=== PATIENT | female | born 1975 | race Two or more races ===

== ENCOUNTER 2016-11-11 16:39 | Observation (INO) | payer OTHER ==
[2016-11-11] MEDS ORDERED: SODIUM CHLORIDE 1,000 ML IV STA (17:12)
[2016-11-11 17:31] VITALS: BMI 37.2
--- NOTE | 2016-11-11 17:42 | PDOC ---
History of Present Illness - General Chief Complaint: Bleeding from Anus Stated Complaint: Rectal Bleed Time Seen by Provider: 11/11/16 17:01 History Source: Patient Exam Limitations: No Limitations - History of Present Illness Initial Comments: 11/11/16 17:37 41 y/o female draining pus and blood from the rectum since yesterday. Patient states went to see Dr. Hidalgo for the above rerouted patient to the ER for concerning diagnosis of perirectal abscess. Patient states has had no fever but has had subjective chills. Patient denies history of immunosuppression including HIV and diabetes. Patient states has had similar symptoms approximately 2 years ago which resolved after having an I&D performed by Dr. Hidalgo. Timing/Duration: getting worse Severity: moderate Associated Symptoms: reports: fever/chills Past History - Travel Traveled outside of the country in the last 30 days: No Close contact w/someone who was outside of country & ill: No - Past Medical History Allergies/Adverse Reactions: Allergies Allergy/AdvReac Type Severity Reaction Status Date / Time latex Allergy Verified 11/11/16 17:31 lactose AdvReac Verified 11/11/16 17:32 Home Medications: Ambulatory Orders Cyclobenzaprine HCl [Flexeril -] 10 mg PO DAILY 11/11/16 Escitalopram Oxalate [Lexapro -] 10 mg PO DAILY 11/11/16 Gabapentin [Neurontin] 100 mg PO TID 11/11/16 Lamotrigine [Lamictal -] 25 mg PO DAILY 11/11/16 Meloxicam [Mobic] 10 mg PO DAILY 11/11/16 Amox-Tr/K Cl [Augmentin 875-125mg Tablet -] 1 tab PO BID@1000,2200 #14 tablet Ibuprofen [Motrin -] 600 mg PO TID PRN #90 tablet 11/12/16 - Psycho/Social/Smoking Cessation Hx Suicidal Ideation: No Smoking History: Current every day smoker Number of Cigarettes Smoked Daily: 6 Information on smoking cessation initiated: No Hx Alcohol Use: No Drug/Substance Use Hx: No Patient Lives Alone: No Lives with/in: spouse/SO Review of Systems - Review of Systems Able to Perform ROS?: Yes Constitutional: Yes: Chills ABD/GI: No: Symptoms Reported Musculoskeletal: No: Symptoms Reported Integumentary: Yes: Erythema, Lumps (rectal) Neurological: No: Symptoms reported Endocrine: No: Symptoms Reported Hematologic/Lymphatic: No: Symptoms Reported *Physical Exam - Vital Signs Last Vital Signs Temp Pulse Resp BP Pulse Ox 98.0 F 100 H 18 122/65 98 11/11/16 16:39 11/11/16 16:39 11/11/16 16:39 11/11/16 16:39 11/11/16 16:39 - Physical Exam General Appearance: Yes: Nourished, Appropriately Dressed. No: Apparent Distress Rectal Exam: positive: other (noted erythematous edematous rectum draining blood -tinged purulent fluid from anus. ) Integumentary: positive: Warm, Moist ED Treatment Course - LABORATORY CBC & Chemistry Diagram: 11/12/16 07:30 11/12/16 07:30 - RADIOLOGY Radiology Studies Ordered: Category Date Time Status ABDOMEN & PELVIS CT WITH CONTR [CT] Stat CT Scan 11/11/16 17:14 Ordered CHEST X-RAY PORTABLE* [RAD] Stat Radiology 11/11/16 17:12 Ordered Medical Decision Making - Medical Decision Making 11/11/16 17:28 Patient sent here from Dr. Hidalgo for evaluation of possible perirectal abscess. He is recommending medical evaluation including a CT. Patient has been ordered for septic workup including abdominal pelvic CT including perirectal contrast and IV contrast. 11/11/16 18:57 Laboratory Tests 11/11/16 11/11/16 11/11/16 17:25 17:30 17:30 WBC 11.1 H Hgb 12.2 Hct 37.7 MCV 74.5 L MCH 24.1 L INR 1.20 H Sodium Potassium Chloride Carbon Dioxide Anion Gap BUN Creatinine Random Glucose Lactic Acid 1.7 Creatine Kinase Troponin I Urine HCG, Qual 11/11/16 11/11/16 17:30 18:35 WBC Hgb Hct MCV MCH INR Sodium 137 Potassium 3.9 Chloride 106 Carbon Dioxide 24 Anion Gap 7 L BUN 18 Creatinine 0.8 Random Glucose 98 Lactic Acid Creatine Kinase 73 Troponin I < 0.02 Urine HCG, Qual Pending *DC/Admit/Observation/Transfer Diagnosis at time of Disposition: Perirectal abscess - Discharge Dispostion Disposition: HOME Condition at time of disposition: Improved - Prescriptions
[2016-11-11] MEDS ORDERED: AMPICILLIN NA/SULBACTAM NA 1.5 GM in SODIUM CHLORIDE 100 ML IVPB ONE (17:56)
[2016-11-11 18:01] LABS: VENOUS BLOOD GAS HCO3 23.3 meq/L (19-25); VENOUS PH 7.43 (7.32-7.42)
[2016-11-11 18:11] LABS: BASOPHIL 0.3 % (0-2.0); EOSINOPHIL 0.1 % (0-4.5); MCH 24.1 pg (25.7-33.7); MCHC 32.4 g/dl (32.0-36.0); MEAN CELL VOLUME 74.5 fl (80-96); MEAN PLT VOLUME 8.7 fl (7.5-11.1); NEUTROPHILS 67.6 % (42.8-82.8); PLATELET COUNT 221 K/MM3 (134-434); WHITE BLOOD COUNT 11.1 K/mm3 (4.0-10.0)
[2016-11-11 18:22] LABS: INR 1.2 (0.82-1.09); PROTHROMBIN TIME (PATIENT) 13.3 SEC (9.98-11.88)
[2016-11-11 18:24] LABS: ACTIVATED PTT 29.7 SECONDS (26.9-34.4)
[2016-11-11 18:32] LABS: ALBUMIN 3.9 g/dl (3.4-5.0); ANION GAP 7 (8-16); BILIRUBIN,TOTAL 0.5 mg/dL (0.2-1.0); CO2 24 mmol/L (21-32); CREATININE 0.8 mg/dL (0.55-1.02); GLUCOSE,RANDOM 98 mg/dL (74-106); SGOT/AST 9 U/L (15-37); SGPT/ALT 18 U/L (12-78); TOT PROT 7.4 g/dl (6.4-8.2)
[2016-11-11 18:35] LABS: ALK PHOS 75 U/L (45-117); CPK 73 IU/L (26-192); TROPONIN I < 0.02 ng/ml (0.00-0.05)
[2016-11-11 19:24] LABS: URINE APPEARANCE SLCLOUDY; URINE BILIRUBIN NEGATIVE (NEGATIVE); URINE BLOOD 2+ (NEGATIVE); URINE COLOR YELLOW; URINE GLUCOSE (UA) NEGATIVE (NEGATIVE); URINE KETONE NEGATIVE (NEGATIVE); URINE NITRITE NEGATIVE (NEGATIVE); URINE PROTEIN NEGATIVE (NEGATIVE); URINE UROBILINOGEN NEGATIVE mg/dL (0.2-1.0)
[2016-11-11 19:29] LABS: URINE LEUK ESTERASE 2+ (NEGATIVE)
[2016-11-11 19:39] LABS: URINE MUCUS MANY; URINE RBC 13 /hpf (0-3); URINE WBC 9 /hpf (3-5)
--- NOTE | 2016-11-11 20:08 | PDOC ---
*Physical Exam - Vital Signs Last Vital Signs Temp Pulse Resp BP Pulse Ox 98.0 F 76 17 121/64 99 11/11/16 16:39 11/11/16 19:49 11/11/16 19:49 11/11/16 19:49 11/11/16 19:49 - Physical Exam Comments: 11/11/16 20:08 Sign-out received from outgoing ER provider Jayshree. Pt interviewed and examined. Ancillary studies reviewed. Awaiting rectal CT. 11/11/16 22:[address] negative for perirectal abscess. Discussed case with covering GI MD Figueroa. Given hx of perirectal abscess and significant pain, will admit for surgical consult tomorrow. Discussed case with covering surgeon MD Yanez. Dr. Yanez will see patient tomorrow. Patient's PCP is Dr. Brianna Seymour, will admit to hospitalist. Discussed case with hospitalist attending MD Osullivan, who accepts patient to observation service for surgical consult tomorrow. ED Treatment Course - LABORATORY CBC & Chemistry Diagram: 11/11/16 17:30 11/11/16 17:30 - ADDITIONAL ORDERS Additional order review: Laboratory Results 11/11/16 11/11/16 11/11/16 18:35 18:35 17:50 INR PTT (Actin FS) VBG pH 7.43 H POC VBG pCO2 35.5 L POC VBG pO2 59.7 H Mixed VBG HCO3 23.3 Sodium Potassium Chloride Carbon Dioxide Anion Gap BUN Creatinine Creat Clearance w eGFR Random Glucose Lactic Acid Calcium Total Bilirubin AST ALT Alkaline Phosphatase Creatine Kinase Troponin I Total Protein Albumin Urine Color Yellow Urine Appearance Slcloudy Urine pH 6.0 Urine Protein Negative Urine Glucose (UA) Negative Urine Ketones Negative Urine Blood 2+ H Urine Nitrite Negative Urine Bilirubin Negative Urine Urobilinogen Negative Ur Leukocyte Esterase 2+ H Urine RBC 13 Urine WBC 9 Ur Epithelial Cells Rare Urine Mucus Many Urine HCG, Qual Negative Blood Type Antibody Screen 11/11/16 11/11/16 11/11/16 17:30 17:30 17:30 INR 1.20 H PTT (Actin FS) 29.7 VBG pH POC VBG pCO2 POC VBG pO2 Mixed VBG HCO3 Sodium 137 Potassium 3.9 Chloride 106 Carbon Dioxide 24 Anion Gap 7 L BUN 18 Creatinine 0.8 Creat Clearance w eGFR > 60 Random Glucose 98 Lactic Acid Calcium 9.0 Total Bilirubin 0.5 AST 9 L ALT 18 Alkaline Phosphatase 75 Creatine Kinase 73 Troponin I < 0.02 Total Protein 7.4 Albumin 3.9 Urine Color Urine Appearance Urine pH Urine Protein Urine Glucose (UA) Urine Ketones Urine Blood Urine Nitrite Urine Bilirubin Urine Urobilinogen Ur Leukocyte Esterase Urine RBC Urine WBC Ur Epithelial Cells Urine Mucus Urine HCG, Qual Blood Type A POSITIVE Antibody Screen Negative 11/11/16 17:25 INR PTT (Actin FS) VBG pH POC VBG pCO2 POC VBG pO2 Mixed VBG HCO3 Sodium Potassium Chloride Carbon Dioxide Anion Gap BUN Creatinine Creat Clearance w eGFR Random Glucose Lactic Acid 1.7 Calcium Total Bilirubin AST ALT Alkaline Phosphatase Creatine Kinase Troponin I Total Protein Albumin Urine Color Urine Appearance Urine pH Urine Protein Urine Glucose (UA) Urine Ketones Urine Blood Urine Nitrite Urine Bilirubin Urine Urobilinogen Ur Leukocyte Esterase Urine RBC Urine WBC Ur Epithelial Cells Urine Mucus Urine HCG, Qual Blood Type Antibody Screen 11/11/16 17:30 RBC 5.06 MCV 74.5 L MCHC 32.4 RDW 15.0 MPV 8.7 Neutrophils % 67.6 Lymphocytes % 23.6 Monocytes % 8.4 Eosinophils % 0.1 Basophils % 0.3 - Medications Given in the ED: ED Medications Discontinued Medications Generic Name Dose Route Start Last Admin Trade Name Freq PRN Reason Stop Dose Admin Sodium Chloride 1,000 mls @ 1,000 mls/hr 11/11/16 17:12 11/11/16 18:05 Normal Saline - IV 11/11/16 18:11 1,000 mls/hr ASDIR STA Administration Ampicillin Sodium/Sulbactam 100 mls @ 200 mls/hr 11/11/16 17:56 11/11/16 18:30 Sodium 1.5 gm/ Sodium Chloride IVPB 11/11/16 18:25 200 mls/hr ONCE ONE Administration *DC/Admit/Observation/Transfer Diagnosis at time of Disposition: Perirectal abscess - Discharge Dispostion Admit: Yes
--- NOTE | 2016-11-11 23:03 | HP ---
CHIEF COMPLAINT: Rectal Pain, Swelling, Discharge PCP: Dr. Dawn Avelar HISTORY OF PRESENT ILLNESS: This is a 41 y/o woman with a past medical history of Perirectal Abscess. Who presents to the ED from Dr. Hidalgo's office for rectal pain and swelling x 1 week. Patient reports noting green pus mixed with serous discharge from her rectum today. Patient reports having chills with no subjective fever. Patient denies cough, SOB, CP, AP, N/V/D, constipation, dysuria. ER course was notable for: (1) WBC 11.1 (2) Lactic Acid 1.7 (3) CT- negative perirectal abscess Recent Travel: None PAST MEDICAL HISTORY: Perirectal Abscess Depression Anxiety Herniated Discs (cervical, lumbar) PAST SURGICAL HISTORY: Hiatal Hernia Repair R- ankle (kiet/screws) C- section TOP x2 Social History: Smoking: Cigarettes 7/day Alcohol: Occasional Drugs: Marijuana use Lives with S.O. Family History: Mother: HTN, AIDS, Hep C, Heroin Abuse Father: HTN, CAD, HIV, Heroin Abuse Brother: HTN Allergies latex Allergy (Verified 11/11/16 17:31) lactose Adverse Reaction (Verified 11/11/16 17:32) HOME MEDICATIONS: Home Medications Medication Instructions Recorded Cyclobenzaprine HCl [Flexeril -] 10 mg PO DAILY 11/11/16 Escitalopram Oxalate [Lexapro -] 10 mg PO DAILY 11/11/16 Gabapentin [Neurontin] 100 mg PO TID 11/11/16 Lamotrigine [Lamictal -] 25 mg PO DAILY 11/11/16 Meloxicam [Mobic] 10 mg PO DAILY 11/11/16 REVIEW OF SYSTEMS CONSTITUTIONAL: chills Absent: fever, diaphoresis, generalized weakness, malaise, loss of appetite, weight change HEENT: Absent: rhinorrhea, nasal congestion, throat pain, throat swelling, difficulty swallowing, mouth swelling, ear pain, eye pain, visual changes CARDIOVASCULAR: Absent: chest pain, syncope, palpitations, irregular heart rate, lightheadedness , peripheral edema RESPIRATORY: Absent: cough, shortness of breath, dyspnea with exertion, orthopnea, wheezing, stridor, hemoptysis GASTROINTESTINAL: Absent: abdominal pain, abdominal distension, nausea, vomiting, diarrhea, constipation, melena, hematochezia RECTUM: pain, swelling, erythema, pus GENITOURINARY: Absent: dysuria, frequency, urgency, hesitancy, hematuria, flank pain, genital pain MUSCULOSKELETAL: Absent: myalgia, arthralgia, joint swelling, back pain, neck pain SKIN: Absent: rash, itching, pallor HEMATOLOGIC/IMMUNOLOGIC: Absent: easy bleeding, easy bruising, lymphadenopathy, frequent infections ENDOCRINE: Absent: unexplained weight gain, unexplained weight loss, heat intolerance, cold intolerance NEUROLOGIC: Absent: headache, focal weakness or paresthesias, dizziness, unsteady gait, seizure, mental status changes, bladder or bowel incontinence PSYCHIATRIC: Absent: anxiety, depression, suicidal or homicidal ideation, hallucinations. PHYSICAL EXAMINATION Vital Signs - 24 hr 11/11/16 11/11/16 16:39 19:49 Temperature 98.0 F Pulse Rate 100 H Pulse Rate [ 76 Apical] Respiratory 18 17 Rate Blood Pressure 122/65 Blood Pressure 121/64 [Left Arm] O2 Sat by Pulse 98 99 Oximetry (%) GENERAL: Awake, alert, and fully oriented, in no acute distress. HEAD: Normal with no signs of trauma. EYES: Pupils equal, round and reactive to light, extraocular movements intact, sclera anicteric, conjunctiva clear. No lid lag. EARS, NOSE, THROAT: Ears normal, nares patent, oropharynx clear without exudates. Moist mucous membranes. NECK: Normal range of motion, supple without lymphadenopathy, JVD, or masses. LUNGS: Breath sounds equal, clear to auscultation bilaterally. No wheezes, and no crackles. No accessory muscle use. HEART: Regular rate and rhythm, normal S1 and S2 without murmur, rub or gallop. ABDOMEN: Soft, nontender, not distended, normoactive bowel sounds, no guarding, no rebound, no masses. No hepatomegaly or splenomegaly. MUSCULOSKELETAL: Normal range of motion at all joints. No bony deformities or tenderness. No CVA tenderness. RECTUM: +erythema, tenderness to palpation, no external hemorrhoids UPPER EXTREMITIES: 2+ pulses, warm, well-perfused. No cyanosis. No clubbing. No peripheral edema. LOWER EXTREMITIES: 2+ pulses, warm, well-perfused. No calf tenderness. No peripheral edema. NEUROLOGICAL: Cranial nerves II-XII intact. Normal speech. Gait not observed. PSYCHIATRIC: Cooperative. Good eye contact. Appropriate mood and affect. SKIN: Warm, dry, normal turgor, no rashes or lesions noted, normal capillary refill. Laboratory Results - last 24 hr 11/11/16 11/11/16 11/11/16 17:25 17:30 17:30 WBC 11.1 H RBC 5.06 Hgb 12.2 Hct 37.7 MCV 74.5 L MCH 24.1 L MCHC 32.4 RDW 15.0 Plt Count 221 MPV 8.7 Neutrophils % 67.6 Lymphocytes % 23.6 Monocytes % 8.4 Eosinophils % 0.1 Basophils % 0.3 INR 1.20 H PTT (Actin FS) 29.7 VBG pH POC VBG pCO2 POC VBG pO2 Mixed VBG HCO3 Sodium Potassium Chloride Carbon Dioxide Anion Gap BUN Creatinine Creat Clearance w eGFR Random Glucose Lactic Acid 1.7 Calcium Total Bilirubin AST ALT Alkaline Phosphatase Creatine Kinase Troponin I Total Protein Albumin Urine Color Urine Appearance Urine pH Urine Protein Urine Glucose (UA) Urine Ketones Urine Blood Urine Nitrite Urine Bilirubin Urine Urobilinogen Ur Leukocyte Esterase Urine RBC Urine WBC Ur Epithelial Cells Urine Mucus Urine HCG, Qual Blood Type Antibody Screen 11/11/16 11/11/16 11/11/16 17:30 17:30 17:50 WBC RBC Hgb Hct MCV MCH MCHC RDW Plt Count MPV Neutrophils % Lymphocytes % Monocytes % Eosinophils % Basophils % INR PTT (Actin FS) VBG pH 7.43 H POC VBG pCO2 35.5 L POC VBG pO2 59.7 H Mixed VBG HCO3 23.3 Sodium 137 Potassium 3.9 Chloride 106 Carbon Dioxide 24 Anion Gap 7 L BUN 18 Creatinine 0.8 Creat Clearance w eGFR > 60 Random Glucose 98 Lactic Acid Calcium 9.0 Total Bilirubin 0.5 AST 9 L ALT 18 Alkaline Phosphatase 75 Creatine Kinase 73 Troponin I < 0.02 Total Protein 7.4 Albumin 3.9 Urine Color Urine Appearance Urine pH Urine Protein Urine Glucose (UA) Urine Ketones Urine Blood Urine Nitrite Urine Bilirubin Urine Urobilinogen Ur Leukocyte Esterase Urine RBC Urine WBC Ur Epithelial Cells Urine Mucus Urine HCG, Qual Blood Type A POSITIVE Antibody Screen Negative 11/11/16 11/11/16 18:35 18:35 WBC RBC Hgb Hct MCV MCH MCHC RDW Plt Count MPV Neutrophils % Lymphocytes % Monocytes % Eosinophils % Basophils % INR PTT (Actin FS) VBG pH POC VBG pCO2 POC VBG pO2 Mixed VBG HCO3 Sodium Potassium Chloride Carbon Dioxide Anion Gap BUN Creatinine Creat Clearance w eGFR Random Glucose Lactic Acid Calcium Total Bilirubin AST ALT Alkaline Phosphatase Creatine Kinase Troponin I Total Protein Albumin Urine Color Yellow Urine Appearance Slcloudy Urine pH 6.0 Urine Protein Negative Urine Glucose (UA) Negative Urine Ketones Negative Urine Blood 2+ H Urine Nitrite Negative Urine Bilirubin Negative Urine Urobilinogen Negative Ur Leukocyte Esterase 2+ H Urine RBC 13 Urine WBC 9 Ur Epithelial Cells Rare Urine Mucus Many Urine HCG, Qual Negative Blood Type Antibody Screen ASSESSMENT/PLAN: This is a 41 y/o woman with a PMHx of: Depression, Anxiety, Perirectal Abscess, Herniated disc (cervical, lumbar). Placed on Observation for Perirectal Abscess for further evaluation of their emergent condition. Problem List - Problem (1) Perirectal abscess Assessment/Plan: - Mildly elevated WBC - Lactic Acid- wnl - Wound Culture-pending - CTAP report- no evidence of perirectal abscess - Unasyn given in ED, will continue - Appreciate Surgical Consult - CBC in am - Monitor vitals - Morphine prn Code(s): K61.1 - RECTAL ABSCESS (2) Depression Assessment/Plan: - Continue home med Code(s): F32.9 - MAJOR DEPRESSIVE DISORDER, SINGLE EPISODE, UNSPECIFIED (3) Anxiety Assessment/Plan: - Continue home med Code(s): F41.9 - ANXIETY DISORDER, UNSPECIFIED (4) DVT prophylaxis Assessment/Plan: - OOB - SCDs - Consider AC if LOS > 48 hrs Code(s): CCW6191 - Visit type - Emergency Visit Emergency Visit: Yes ED Registration Date: 11/11/16 Care time: The patient presented to the Emergency Department on the above date and was hospitalized for further evaluation of their emergent condition. - New Patient This patient is new to me today: Yes Date on this admission: 11/11/16 - Critical Care Critical Care patient: No
[2016-11-11] MEDS ORDERED: morphine CARPU-JECT 2 MG/1 ML DISP.SYRIN IVPUSH ONE (23:14)
[2016-11-11] MEDS ORDERED: morphine CARPU-JECT 4 MG/1 ML DISP.SYRIN ONE (23:47)
[2016-11-12] MEDS ORDERED: morphine CARPU-JECT 4 MG/1 ML DISP.SYRIN IVPUSH PRN (01:36)
[2016-11-12] MEDS ORDERED: DEXTROSE 5%-0.45% SALINE 1,000 ML IV SCH (01:45)
[2016-11-12 08:29] VITALS: BP 101/51; PULSE 58; TEMP 98.2
[2016-11-12 08:29] LABS: BASOPHIL 0.3 % (0-2.0); EOSINOPHIL 0.2 % (0-4.5); MCH 23.7 pg (25.7-33.7); MCHC 31.5 g/dl (32.0-36.0); MEAN CELL VOLUME 75.1 fl (80-96); MEAN PLT VOLUME 8.4 fl (7.5-11.1); NEUTROPHILS 50.5 % (42.8-82.8); PLATELET COUNT 186 K/MM3 (134-434); RDW 15.3 % (11.6-15.6)
[2016-11-12 08:55] LABS: ANION GAP 9 (8-16); CALCIUM 8.3 mg/dL (8.5-10.1); CO2 26 mmol/L (21-32); GLUCOSE,RANDOM 101 mg/dL (74-106)
[2016-11-12 08:56] LABS: CREATININE 0.6 mg/dL (0.55-1.02)
--- NOTE | 2016-11-12 09:26 | PN ---
Progress Note (short form) - Note Progress Note: Subjective: The patient was seen and examined at the bedside, she states minor perirectal pain. She reports having relief with Morphine. Awaiting surgical consult Changed abx to Augmentin, awaiting wound culture Current Medications Generic Name Dose Route Start Last Admin Trade Name Freq PRN Reason Stop Dose Admin Amoxicillin/Clavulanate Potassium 1 tab 11/12/16 10:00 Augmentin - 875mg Tablet PO BID@1000,2200 LUIS ALBERTO Dextrose/Sodium Chloride 1,000 mls @ 83 mls/hr 11/12/16 01:45 11/12/16 02:48 D5-1/2ns - IV 83 mls/hr ASDIR LUIS ALBERTO Administration Morphine Sulfate 4 mg 11/12/16 01:36 11/12/16 06:46 Morphine Injection - IVPUSH 4 mg Q6H PRN Administration PAIN Objective: Vital Signs Period Temp Pulse Resp BP Sys/Suarez Pulse Ox Last 24 Hr 98.0 F-98.7 F 58-100 15-20 101-122/51-68 94-99 Physical Exam: General: NAD, A&Ox3 Lungs: CTA bilaterally Heart: RRR, S1S2 : Posterior rectal draining abscess, erythema noted, however no surrounding erythema. Tenderness present. Neuro: CN 2-12 intact CBCD WBC 10.0 K/mm3 (4.0-10.0) 11/12/16 07:30 RBC 4.69 M/mm3 (3.60-5.2) 11/12/16 07:30 Hgb 11.1 GM/dL (10.7-15.3) 11/12/16 07:30 Hct 35.2 % (32.4-45.2) 11/12/16 07:30 MCV 75.1 fl (80-96) L 11/12/16 07:30 MCHC 31.5 g/dl (32.0-36.0) L 11/12/16 07:30 RDW 15.3 % (11.6-15.6) 11/12/16 07:30 Plt Count 186 K/MM3 (134-434) 11/12/16 07:30 MPV 8.4 fl (7.5-11.1) 11/12/16 07:30 CMP Sodium 138 mmol/L (136-145) 11/12/16 07:30 Potassium 3.9 mmol/L (3.5-5.1) 11/12/16 07:30 Chloride 103 mmol/L (98-107) 11/12/16 07:30 Carbon Dioxide 26 mmol/L (21-32) 11/12/16 07:30 Anion Gap 9 (8-16) 11/12/16 07:30 BUN 19 mg/dL (7-18) H 11/12/16 07:30 Creatinine 0.6 mg/dL (0.55-1.02) D 11/12/16 07:30 Creat Clearance w eGFR > 60 (>60) 11/11/16 17:30 Random Glucose 101 mg/dL (74-106) 11/12/16 07:30 Calcium 8.3 mg/dL (8.5-10.1) L 11/12/16 07:30 Total Bilirubin 0.5 mg/dL (0.2-1.0) 11/11/16 17:30 AST 9 U/L (15-37) L 11/11/16 17:30 ALT 18 U/L (12-78) 11/11/16 17:30 Alkaline Phosphatase 75 U/L (45-117) 11/11/16 17:30 Total Protein 7.4 g/dl (6.4-8.2) 11/11/16 17:30 Albumin 3.9 g/dl (3.4-5.0) 11/11/16 17:30 CARDIAC ENZYMES Creatine Kinase 73 IU/L (26-192) 11/11/16 17:30 Troponin I < 0.02 ng/ml (0.00-0.05) 11/11/16 17:30 Assessment: This is a 41 year old female with PMHx of perirectal abscess, depression, anxiety, who presented to the ED with drainage, pain in her rectal area. Plan: 1) ID: Perirectal abscess - Open and draining - No evidence of surrounding cellulits - Change abx to po Augmentin - CTAP with no evidence of perirectal abscess - F/u wound culture - Pain management - Sitz bath - F/u surgery consult 2) Psych: Depression/anxiety - Continue Lexapro - Continue Lamictal 3) F/E/N: - Monitor electrolytes - NPO until surgical consult 4) Prophylaxis: - Hold all chemical DVT prophylaxis until evaluated by surgery - SCDs bilaterally 5) Dispo: - Once evaluated by surgery CODE STATUS: FULL CODE Visit type - Emergency Visit Emergency Visit: Yes ED Registration Date: 11/11/16 Care time: The patient presented to the Emergency Department on the above date and was hospitalized for further evaluation of their emergent condition. - New Patient This patient is new to me today: Yes Date on this admission: 11/12/16 - Critical Care Critical Care patient: No
[2016-11-12] MEDS ORDERED: lamoTRIgine 25 MG TABLET PO SCH (10:00)
[2016-11-12] MEDS ORDERED: ESCITALOPRAM OXALATE 10 MG TABLET (FP) PO SCH (10:00)
[2016-11-12] MEDS ORDERED: AMPICILLIN NA/SULBACTAM NA 1.5 GM in SODIUM CHLORIDE 100 ML IVPB SCH (10:00)
[2016-11-12] MEDS ORDERED: CYCLOBENZAPRINE HCL 10 MG TABLET (FP) PO SCH (10:00)
[2016-11-12] MEDS: AMOX TR/POT CLAV 875MG/125MG TABLETS (FP) PO SCH ×2 (10:21→12:44)
--- NOTE | 2016-11-12 11:18 | PN ---
Progress Note (short form) - Note Progress Note: surgery pt seen and examined. full consult dictated. 41f with history of perirectal abscesses, last colonoscopy 1 year ago, 15 lb weight loss in last 3 months with new diet plan, presents with yosvany-rectal abscess that spontaneously drained. CT negative for collection. wbc 10, no fever, pt feels well. on exam there is a spontaneous draining abscess at 6:00 position. No remaining fluctuance. EMELI deferred for pain. Plan- surgically stable for d/c. recommend 1 week augmentin 875 bid. warm sitz bath tid with epsom salt. f/u in 3 weeks with me or Dr. Hidalgo to evaluate for fistula formation. [phone]
[2016-11-12] MEDS ORDERED: ACETAMINOPHEN 325 MG TABLET (FP) PO PRN (12:39)
[2016-11-12] MEDS ORDERED: IBUPROFEN 600 MG TABLET (FP) PO PRN (12:39)
--- NOTE | 2016-11-12 12:40 | DS ---
Physical Examination Vital Signs: Vital Signs Temperature 98.2 F 11/12/16 08:28 Pulse Rate 58 L 11/12/16 08:28 Respiratory Rate 18 11/12/16 08:28 Blood Pressure 101/51 11/12/16 08:28 O2 Sat by Pulse Oximetry (%) 94 L 11/12/16 00:33 Labs: CBC, BMP 11/12/16 07:30 11/12/16 07:30 Discharge Summary Reason For Visit: PERIRECTAL ABSCESS Current Active Problems Anxiety (Acute) DVT prophylaxis (Acute) Depression (Acute) Perirectal abscess (Acute) Condition: Improved - Instructions Diet, Activity, Other Instructions: Please return to the ED with new, persistent, or worsening symptoms. Please follow-up with providers as indicated. Please follow-up with your primary care provider for outpatient HIV testing and to have your HgbA1c checked. Continue Augmentin 875mg by mouth twice a day for 7 days. Warm Sitz bath three times a day with epsom salts. Referrals: Scooby Hidalgo MD [Staff Physician] - (Please follow-up with Dr. Hidalgo within 1 week for further management of your rectal abscess) Abdi Yanez MD [Staff Physician] - 3 Weeks Disposition: HOME - Home Medications Comprehensive Discharge Medication List: Ambulatory Orders Cyclobenzaprine HCl [Flexeril -] 10 mg PO DAILY 11/11/16 Escitalopram Oxalate [Lexapro -] 10 mg PO DAILY 11/11/16 Gabapentin [Neurontin] 100 mg PO TID 11/11/16 Lamotrigine [Lamictal -] 25 mg PO DAILY 11/11/16 Meloxicam [Mobic] 10 mg PO DAILY 11/11/16 Amox-Tr/K Cl [Augmentin 875-125mg Tablet -] 1 tab PO BID@1000,2200 #14 tablet
--- NOTE | 2016-11-12 12:46 | CONS ---
DATE OF CONSULTATION: 11/12/2016 REASON FOR CONSULTATION: Perirectal abscess. This is an emergency room consultation requested by the emergency room physician. The patient was subsequently admitted to the floor and is being seen and examined as an inpatient. REASON FOR CONSULTATION: Perirectal abscess. BRIEF HISTORY: This is a 41 -year-old female who has a history of perirectal abscesses. She had a colonoscopy 1 year ago at which time Dr. Hidalgo lanced one. Since that time she has had a couple more that spontaneously drained on their own and she developed 1 yesterday and because of this came into the [facility]. There it also spontaneously ruptured and she was admitted to be evaluated by a surgeon. Overnight her pain has resolved. She has no fever and her white blood cell count is normal. She had a CAT scan of her abdomen and pelvis done in the emergency room which showed no evidence of a perirectal abscess. The patient was placed on Augmentin antibiotic. She denies nausea, denies vomiting, denies blood in her stool. She admits to recent 15 pound weight loss but states she has been dieting with a new green coffee diet plan and all of her weight loss is intentional. PAST MEDICAL HISTORY: As per HPI. In addition, she has depression, anxiety, and a herniated disk. She has also been told she has a hiatal hernia. PAST SURGICAL HISTORY: Includes right ankle surgery, section, and 2 abortions. SOCIAL HISTORY: Significant for tobacco, alcohol and marijuana. She has been encouraged to quit. ALLERGIES: LATEX AND LACTULOSE. FAMILY HISTORY: Significant for a mother with cervical cancer secondary to HPV virus. She also admits HPV virus. REVIEW OF SYSTEMS: General: Denies fatigue or malaise. Cardiac: Denies chest pain or palpitations. Respiratory: Denies shortness of breath or wheeze. Gastrointestinal: As in HPI. Genitourinary: Denies dysuria. Musculoskeletal: Denies joint pain. Admits to back pain. Psychiatric: Admits to some depression. MEDICATIONS: Her home medications have been reviewed. They include Flexeril, Lamictal, Lexapro, Mobic and gabapentin. PHYSICAL EXAMINATION: General: This is an obese 41 -year-old female in no distress. She is currently afebrile and she has been since admission. HEENT: Her head is normocephalic, her sclerae anicteric. Neck: Supple. Chest: Clear. Abdomen: Soft. Extremities: No edema. Visual Rectal Exam: She is noted to have a draining perirectal abscess at the 6 o'clock position. There is no fluctuance noted on the outside and no erythema. Digital rectal exam is deferred as the patient states that she does not want that because of discomfort. LABORATORY DATA: On review of her laboratory her white blood cell count is 10.0 which is down from 11.1. She does not have a shift. Her chemistries are unremarkable with a normal lactic acid. Her imaging is as in HPI. ASSESSMENT: This is a 41 -year-old female with history of perirectal abscess and colonoscopy 1 year ago. At this point she has a spontaneously draining perirectal abscess and does not require further incision and drainage. At this point there is no surgical contraindications at discharge. I agree with Augmentin antibiotic and would treat for 1 week. Would do warm Sitz baths with Epson salt 3 times a day to help continue the drainage. It is okay for patient to start a diet and likely be discharged today. She should follow with myself or Dr. Hidalgo in approximately 3 weeks' time to evaluate for development of an anal fistula. A repeat colonoscopy, timing per Dr. Hidalgo. DO ROBBIE HALE/[id number]
[2016-11-12] MEDS: MAGNESIUM SULFATE 16 OZ CRYSTALS TP SCH ×2 (12:57→14:15)
[2016-11-12] MEDS ORDERED: GABAPENTIN 100 MG CAPSULE (FP) PO SCH (14:00)
--- NOTE | 2016-11-12 14:45 | EKG ---
Test Reason : Blood Pressure : / mmHG Vent. Rate : 078 BPM Atrial Rate : 078 BPM P-R Int : 156 ms QRS Dur : 086 ms QT Int : 360 ms P-R-T Axes : 049 040 018 degrees QTc Int : 410 ms NORMAL SINUS RHYTHM POSSIBLE LEFT ATRIAL ENLARGEMENT NONSPECIFIC ST ABNORMALITY ABNORMAL ECG NO PREVIOUS ECGS AVAILABLE Confirmed by STEVE GARCÍA MD ([id number]) on 11/12/2016 2:44:55 PM Referred By: Confirmed By:STEVE GARCÍA MD
[2016-11-12] MEDS ORDERED: AMOX TR/POT CLAV 875MG/125MG TABLETS (FP) PO SCH (17:30)
== END 2016-11-12 14:05 | disposition home or self-care (01) ==
LOC: JER 16:39 → JERBED 22:31 → J6S 11-12 03:34
PROVIDERS: ADMIT Internal Medicine; ATTEND Registered Nurse
PROC: 3E03329 Introduction of Other Anti-infective into Peripheral Vein, Percutaneous Approach (ICD-10-PCS; principal; 2016-11-11)
PROC: 3E033NZ Introduction of Analgesics, Hypnotics, Sedatives into Peripheral Vein, Percutaneous Approach (ICD-10-PCS; 2016-11-11)
PROC: 3E0337Z Introduction of Electrolytic and Water Balance Substance into Peripheral Vein, Percutaneous Approach (ICD-10-PCS; 2016-11-11)
DX: K61.1 Rectal abscess (principal); F32.9 Major depressive disorder, single episode, unspecified; F41.9 Anxiety disorder, unspecified; F17.210 Nicotine dependence, cigarettes, uncomplicated; Z91.040 Latex allergy status; Z91.011 Allergy to milk products
CPT/HCPCS: 36415; 71010-TC; 74177-TC; 80048; 80053; 81003; 81015; 82803; 83036; 83605; 84484; 84703; 85025; 85610; 85730; 86850; 86900; 86901; 87040; 87070; 87077; 87086; 87186; 87205; 93005; 93010; 99285-25; G0378

== ENCOUNTER 2016-11-25 12:07 | Inpatient (IN) | payer OTHER ==
[2016-11-25 13:17] VITALS: BMI 35.7
--- NOTE | 2016-11-25 17:06 | HP ---
Admission ROS [facility] Chief Complaint: i am here for rehab from marijuana Allergies/Adverse Reactions: Allergies Allergy/AdvReac Type Severity Reaction Status Date / Time latex Allergy Itching Verified 11/25/16 22:38 No Known Drug Allergies Allergy Verified 11/26/16 09:15 lactose AdvReac Severe bloating Verified 11/25/16 22:38 NKDA Allergy Uncoded 11/25/16 22:38 History of Present Illness: this 41 years old female with marijuana dependence,seeking rehab,last treatment in 2010 history of hiatus hernia low back pain,neck pain,anemia febrile convulsion last age of 54 years old anxiety.depression longest period of sobriety 2 and half years history of perianal abscess - Ebola screening Have you traveled outside of the country in the last 21 days: No Have you had contact with anyone from an Ebola affected area: No Have you been sick,other than usual withdrawal symptoms: No - Review of Systems Constitutional: Changes in sleep EENT: reports: No Symptoms Reported Respiratory: reports: No Symptoms reported Cardiac: reports: No Symptoms Reported GI: reports: No Symptoms Reported, Other : reports: No Symptoms Reported Musculoskeletal: reports: No Symptoms Reported Integumentary: reports: No Symptoms Reported Neuro: reports: No Symptoms reported Endocrine: reports: No Symptoms Reported Hematology: reports: Anemia Psychiatric: reports: No Sypmtoms Reported, Judgement Intact, Mood/Affect Appropiate, Orientated x3, Anxious, Depressed Patient History - Patient Medical History Hx Anemia: Yes (on iron ) Hx Asthma: No Hx Chronic Obstructive Pulmonary Disease (COPD): No Hx Cancer: No Hx Cardiac Disorders: No Hx Congestive Heart Failure: No Hx Hypertension: No Hx Hypercholesterolemia: No Hx Pacemaker: No HX Cerebrovascular Accident: No Hx Seizures: Yes (febrile convulsion last age of 4 years) Hx Dementia: No Hx Diabetes: No Hx Gastrointestinal Disorders: Yes (gerd) Hx Liver Disease: No Hx Genitourinary Disorders: No Hx Sexually Transmitted Disorders: No Hx Renal Disease (ESRD): No Hx Thyroid Disease: No Hx Human Immunodeficiency Virus (HIV): No (last 05/23) Hx Hepatitis C: No Hx Depression: Yes (anxieety) Hx Suicide Attempt: No Hx Bipolar Disorder: No Hx Schizophrenia: No Other Medical History: no sucidal,no homicidal,s/p i and d of perianal abscess - Patient Surgical History Past Surgical History: Yes Hx Section: Yes (2000) Hx Orthopedic Surgery: Yes (right ankle 2008) - PPD History Previous Implant?: Yes Documented Results: Negative w/o proof Implanted On Prior R Admission?: Yes PPD to be Administered?: Yes - Reproductive History Patient is a Female of Child Bearing Age (11 -55 yrs old): Yes Last Menstrual Period: 11/13/16 Patient : No - Smoking Cessation Smoking history: Current every day smoker Have you smoked in the past 12 months: Yes Aproximately how many cigarettes per day: 10 Hx Chewing Tobacco Use: No Initiated information on smoking cessation: Yes 'Breaking Loose' booklet given: 11/25/16 - Substance & Tx. History Hx Alcohol Use: No Hx Substance Use: Yes Substance Use Type: Marijuana Hx Substance Use Treatment: Yes (last treatment 2010 [place]) - Substances Abused Marijuana/Hashish Route: Smoking Frequency: Daily Amount used: 10$ Age of first use: 15 Date of Last Use: 11/24/16 Family Disease History - Family Disease History Family Disease History: Other: Father (heroin,crack,), Mother (heroin, on suboxone), Brother (dsa) Admission Physical Exam [facility] - Vital Signs Vital Signs: Vital Signs - 24 hr 11/25/16 13:08 Temperature 99.0 F Pulse Rate 90 Respiratory 18 Rate Blood Pressure 150/97 - Physical General Appearance: Yes: Within Normal Limits HEENTM: Yes: Hearing grossly Normal, Normal ENT Inspection, Pharynx Normal Respiratory: Yes: Lungs Clear, Normal Breath Sounds, No Respiratory Distress Neck: Yes: Within Normal Limits Breast: Yes: Breast Exam Deferred Cardiology: Yes: Within Normal Limits, Regular Rhythm, Regular Rate, S1, S2 Abdominal: Yes: Within Normal Limits, Normal Bowel Sounds, Non Tender, Soft Genitourinary: Yes: Within Normal Limits Back: Yes: Other (pain in the right ankle) Musculoskeletal: Yes: Back pain Extremities: Yes: Within Normal Limits, Normal Range of Motion Neurological: Yes: platform operations director II-XII NML intact, Fully Oriented, Alert, Motor Strength 5/5 Integumentary: Yes: Dry Lymphatic: Yes: Within Normal Limits - Diagnostic (1) Perirectal abscess Current Visit: Yes Status: Resolved (2) Cannabis dependence Current Visit: Yes Status: Chronic (3) Febrile convulsion Current Visit: Yes Status: Acute (4) Lactose intolerance Current Visit: Yes Status: Chronic (5) GERD (gastroesophageal reflux disease) Current Visit: Yes Status: Chronic (6) Low back pain Current Visit: Yes Status: Chronic (7) Neck pain Current Visit: Yes Status: Acute (8) History of fracture of right ankle Current Visit: Yes Status: Resolved Cleared for Admission [facility] - Detox or Rehab Claeared for Rehab Admission: Yes [facility] Breath Alcohol Content Breath Alcohol Content: 0 Urine Pregancy Test - Result Urine Test Results: Negative- NO Line Present Urine Drug Screen - Results Drug Screen Negative: No Urine Drug Screen Results: THC-Marijuana
[2016-11-25] MEDS ORDERED: P-EPHED 60MG/TRIPROLIDI 2.5MG TABLET PO PRN (17:36)
[2016-11-25] MEDS ORDERED: hydrOXYzine PAMOATE 50 MG CAPSULE (FP) PO PRN (17:36)
[2016-11-25] MEDS ORDERED: MAGNESIUM CITRATE 300 ML BOTTLE PO PRN (17:36)
[2016-11-25] MEDS ORDERED: guaiFENesin/D-METHORPHAN HB 10 ML UNIT-DOSE CUPS PO PRN (17:36)
[2016-11-25] MEDS ORDERED: ACETAMINOPHEN 325 MG TABLET (FP) PO PRN (17:36)
[2016-11-25] MEDS ORDERED: IBUPROFEN 400 MG TABLET (FP) PO PRN (17:36)
[2016-11-25] MEDS ORDERED: MENTHOL/PHENOL 1 EACH UD MM PRN (17:36)
[2016-11-25] MEDS ORDERED: MAG HYDROX/AL HYDROX/SIMETH 30 ML UNIT-DOSE CUP PO PRN (17:36)
[2016-11-25] MEDS ORDERED: LOPERAMIDE HCL 2 MG CAPSULE PO PRN (17:36)
[2016-11-25] MEDS ORDERED: MAGNESIUM HYDROX 2400MG/30ML ORAL SUSPENSION 30 ML CUP PO PRN (17:36)
[2016-11-25] MEDS ORDERED: CYCLOBENZAPRINE HCL PO PRN (17:38)
[2016-11-25] MEDS ORDERED: ACETAMINOPHEN PO PRN (17:38)
[2016-11-25] MEDS ORDERED: IBUPROFEN PO PRN (17:38)
[2016-11-25] MEDS ORDERED: ACETAMINOPHEN 500 MG TABLET (FP) PO PRN (18:43)
[2016-11-25] MEDS ORDERED: TUBERCULIN PPD 5 TU/0.1ML VIAL ID ONE (21:50)
[2016-11-25] MEDS ORDERED: GABAPENTIN 100 MG PO SCH (22:00)
[2016-11-25] MEDS ORDERED: PATIENT'S OWN MEDICATION (NON-FORMULARY) (Amox-Tr/K Cl [Augmentin 875-125mg Tablet -] 1 TA PO SCH (22:00)
[2016-11-25] MEDS: THIAMINE HCL 100 MG TABLET (FP) PO SCH (23:13)
[2016-11-25] MEDS: diphenhydrAMINE HCL 50 MG CAPSULE PO PRN (23:13)
[2016-11-25] MEDS: GABAPENTIN 100 MG CAPSULE (FP) PO SCH (23:13)
[2016-11-25] MEDS: AMOX TR/POT CLAV 875MG/125MG TABLETS (FP) PO SCH (23:13)
[2016-11-26] MEDS: GABAPENTIN 100 MG CAPSULE (FP) PO SCH ×3 (07:23→21:43)
[2016-11-26] MEDS: PRENATAL VITAMINS W/ FOLIC ACID TABLET (FP) PO SCH (09:14)
[2016-11-26] MEDS: FERROUS SO4 325 MG TABLET (FP) PO SCH (09:14)
[2016-11-26] MEDS: PANTOPRAZOLE 40 MG TABLET (FP) PO SCH (09:14)
[2016-11-26] MEDS: AMOX TR/POT CLAV 875MG/125MG TABLETS (FP) PO SCH ×2 (09:14→21:43)
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
[2016-11-26] MEDS ORDERED: MELOXICAM 10 MG PO SCH (10:00)
[2016-11-26] MEDS ORDERED: PATIENT'S OWN MEDICATION (NON-FORMULARY) (Ferrous Sulfate [Feosol] 325 MG) PO SCH (10:00)
[2016-11-26] MEDS ORDERED: PANTOPRAZOLE SODIUM 40 MG PO SCH (10:00)
[2016-11-26 10:15] LABS: MCHC 31.6 g/dl (32.0-36.0); MEAN CELL VOLUME 75.9 fl (80-96); MEAN PLT VOLUME 8.8 fl (7.5-11.1); PLATELET COUNT 158 K/MM3 (134-434); RDW 15.2 % (11.6-15.6); WHITE BLOOD COUNT 8.9 K/mm3 (4.0-10.0)
[2016-11-26 10:28] LABS: ALBUMIN 3.3 g/dl (3.4-5.0); ALK PHOS 61 U/L (45-117); ANION GAP 6 (8-16); BILIRUBIN,TOTAL 0.4 mg/dL (0.2-1.0); CALCIUM 8.5 mg/dL (8.5-10.1); CO2 27 mmol/L (21-32); CREATININE 0.7 mg/dL (0.55-1.02); GLUCOSE,RANDOM 86 mg/dL (74-106); SGOT/AST 11 U/L (15-37); SGPT/ALT 18 U/L (12-78); TOT PROT 6.1 g/dl (6.4-8.2)
--- NOTE | 2016-11-26 11:35 | EKG ---
Test Reason : Blood Pressure : / mmHG Vent. Rate : 058 BPM Atrial Rate : 058 BPM P-R Int : 156 ms QRS Dur : 090 ms QT Int : 414 ms P-R-T Axes : 058 044 039 degrees QTc Int : 406 ms SINUS BRADYCARDIA WITH BLOCKED PREMATURE ATRIAL COMPLEXES POSSIBLE LEFT ATRIAL ENLARGEMENT BORDERLINE ECG WHEN COMPARED WITH ECG OF 11-NOV-2016 18:05, PREMATURE ATRIAL COMPLEXES ARE NOW PRESENT Confirmed by ANEESH FREEDMAN, CATRACHITO ([id number]) on 11/26/2016 11:35:17 AM Referred By: Екатерина Gonzalez Confirmed By:CATRACHITO MELENDREZ MD
[2016-11-26] MEDS ORDERED: PNEUMOC 13-VAL CONJ-DIP CRM/PF 0.5 ML DISP.SYRIN IM ONE (12:00)
[2016-11-26] MEDS ORDERED: PNEUMOCOCCAL 23 VACCINE 0.5 ML VIAL IM ONE (12:00)
[2016-11-26] MEDS: lamoTRIgine 25 MG TABLET PO SCH ×2 (12:26→21:43)
[2016-11-26] MEDS: ESCITALOPRAM OXALATE 20 MG TABLET (FP) PO SCH (12:26)
[2016-11-26] MEDS: NICOTINE POLACRILEX 2 MG GUM BC PRN (13:59)
[2016-11-26] MEDS: THIAMINE HCL 100 MG TABLET (FP) PO SCH (21:43)
[2016-11-26] MEDS: DOCUSATE SODIUM 100 MG CAPSULE (FP) PO SCH (21:43)
[2016-11-26] MEDS: IBUPROFEN 600 MG TABLET (FP) PO PRN (23:20)
[2016-11-26] MEDS: diphenhydrAMINE HCL 50 MG CAPSULE PO PRN (23:20)
[2016-11-27] MEDS: GABAPENTIN 100 MG CAPSULE (FP) PO SCH ×3 (06:44→21:33)
[2016-11-27] MEDS: NICOTINE POLACRILEX 2 MG GUM BC PRN (06:45)
[2016-11-27] MEDS: AMOX TR/POT CLAV 875MG/125MG TABLETS (FP) PO SCH ×2 (10:11→21:33)
[2016-11-27] MEDS: lamoTRIgine 25 MG TABLET PO SCH ×2 (10:11→21:33)
[2016-11-27] MEDS: FERROUS SO4 325 MG TABLET (FP) PO SCH (10:11)
[2016-11-27] MEDS: DOCUSATE SODIUM 100 MG CAPSULE (FP) PO SCH ×2 (10:11→21:33)
[2016-11-27] MEDS: PANTOPRAZOLE 40 MG TABLET (FP) PO SCH (10:12)
[2016-11-27] MEDS: ESCITALOPRAM OXALATE 20 MG TABLET (FP) PO SCH (10:12)
[2016-11-27] MEDS: PRENATAL VITAMINS W/ FOLIC ACID TABLET (FP) PO SCH (10:12)
[2016-11-27] MEDS: IBUPROFEN 600 MG TABLET (FP) PO PRN ×2 (13:24→21:35)
[2016-11-27 14:13] LABS: HIV 1 & 2 AB NEGATIVE; HIV 1 AGp24 NEGATIVE
[2016-11-27] MEDS: CYCLOBENZAPRINE HCL 10 MG TABLET (FP) PO PRN (15:12)
[2016-11-27] MEDS: diphenhydrAMINE HCL 50 MG CAPSULE PO PRN (21:30)
[2016-11-27] MEDS: THIAMINE HCL 100 MG TABLET (FP) PO SCH (21:32)
[2016-11-27] MEDS: NAPHAZOLINE/PHENIRAMINE OPHTHALMIC 15 ML BOTTLE OU SCH (21:35)
[2016-11-27] MEDS: METHYL SALICYLATE/MENTHOL OINT 30 GM TUBE TP SCH (23:17)
[2016-11-28] MEDS: GABAPENTIN 100 MG CAPSULE (FP) PO SCH ×3 (06:45→21:45)
[2016-11-28] MEDS: NICOTINE POLACRILEX 2 MG GUM BC PRN (06:47)
[2016-11-28] MEDS ORDERED: PT OWN MED DRAWER 7, Y5N ONE ×2 (08:47→13:17)
[2016-11-28] MEDS: DOCUSATE SODIUM 100 MG CAPSULE (FP) PO SCH ×2 (10:18→21:45)
[2016-11-28] MEDS: PRENATAL VITAMINS W/ FOLIC ACID TABLET (FP) PO SCH (10:18)
[2016-11-28] MEDS: FERROUS SO4 325 MG TABLET (FP) PO SCH (10:18)
[2016-11-28] MEDS: PANTOPRAZOLE 40 MG TABLET (FP) PO SCH (10:18)
[2016-11-28] MEDS: AMOX TR/POT CLAV 875MG/125MG TABLETS (FP) PO SCH ×2 (10:18→21:45)
[2016-11-28] MEDS: NAPHAZOLINE/PHENIRAMINE OPHTHALMIC 15 ML BOTTLE OU SCH ×2 (10:18→21:45)
[2016-11-28] MEDS: lamoTRIgine 25 MG TABLET PO SCH ×2 (10:18→21:45)
[2016-11-28] MEDS: ESCITALOPRAM OXALATE 20 MG TABLET (FP) PO SCH (10:19)
[2016-11-28] MEDS: METHYL SALICYLATE/MENTHOL OINT 30 GM TUBE TP SCH (10:19)
[2016-11-28 11:44] LABS: URINE APPEARANCE SLCLOUDY; URINE BILIRUBIN NEGATIVE (NEGATIVE); URINE BLOOD 3+ (NEGATIVE); URINE COLOR STRAW; URINE GLUCOSE (UA) NEGATIVE (NEGATIVE); URINE KETONE NEGATIVE (NEGATIVE); URINE LEUK ESTERASE NEGATIVE (NEGATIVE); URINE NITRITE NEGATIVE (NEGATIVE); URINE PROTEIN NEGATIVE (NEGATIVE); URINE UROBILINOGEN NEGATIVE mg/dL (0.2-1.0)
[2016-11-28 12:00] LABS: URINE MUCUS RARE; URINE RBC 6 /hpf (0-3); URINE WBC 1 /hpf (3-5)
[2016-11-28] MEDS: CYCLOBENZAPRINE HCL 10 MG TABLET (FP) PO PRN (20:20)
[2016-11-28] MEDS: diphenhydrAMINE HCL 50 MG CAPSULE PO PRN (21:45)
[2016-11-28] MEDS: THIAMINE HCL 100 MG TABLET (FP) PO SCH (21:45)
[2016-11-28] MEDS: METHYL SALICYLATE/MENTHOL OINT 30 GM TUBE TP PRN (21:48)
[2016-11-28] MEDS: IBUPROFEN 600 MG TABLET (FP) PO PRN (21:49)
[2016-11-29] MEDS: GABAPENTIN 100 MG CAPSULE (FP) PO SCH ×3 (06:41→21:33)
[2016-11-29] MEDS: DOCUSATE SODIUM 100 MG CAPSULE (FP) PO SCH ×2 (09:28→21:33)
[2016-11-29] MEDS: FERROUS SO4 325 MG TABLET (FP) PO SCH (09:28)
[2016-11-29] MEDS: AMOX TR/POT CLAV 875MG/125MG TABLETS (FP) PO SCH ×2 (09:28→21:32)
[2016-11-29] MEDS: lamoTRIgine 25 MG TABLET PO SCH ×2 (09:29→21:33)
[2016-11-29] MEDS: PANTOPRAZOLE 40 MG TABLET (FP) PO SCH (09:30)
[2016-11-29] MEDS: ESCITALOPRAM OXALATE 20 MG TABLET (FP) PO SCH (09:30)
[2016-11-29] MEDS: PRENATAL VITAMINS W/ FOLIC ACID TABLET (FP) PO SCH (09:30)
[2016-11-29] MEDS: NAPHAZOLINE/PHENIRAMINE OPHTHALMIC 15 ML BOTTLE OU SCH ×2 (09:31→21:33)
[2016-11-29] MEDS: IBUPROFEN 600 MG TABLET (FP) PO PRN (16:05)
[2016-11-29] MEDS ORDERED: PT OWN MED DRAWER 7, Y5N ONE (19:21)
[2016-11-29] MEDS: THIAMINE HCL 100 MG TABLET (FP) PO SCH (21:33)
[2016-11-29] MEDS: diphenhydrAMINE HCL 50 MG CAPSULE PO PRN (21:35)
[2016-11-29] MEDS: CYCLOBENZAPRINE HCL 10 MG TABLET (FP) PO PRN (21:35)
[2016-11-30] MEDS: GABAPENTIN 100 MG CAPSULE (FP) PO SCH ×3 (06:41→21:25)
[2016-11-30] MEDS: FERROUS SO4 325 MG TABLET (FP) PO SCH (09:47)
[2016-11-30] MEDS: AMOX TR/POT CLAV 875MG/125MG TABLETS (FP) PO SCH ×2 (09:47→21:24)
[2016-11-30] MEDS: NAPHAZOLINE/PHENIRAMINE OPHTHALMIC 15 ML BOTTLE OU SCH ×2 (09:47→21:25)
[2016-11-30] MEDS: ESCITALOPRAM OXALATE 20 MG TABLET (FP) PO SCH (09:47)
[2016-11-30] MEDS: DOCUSATE SODIUM 100 MG CAPSULE (FP) PO SCH ×2 (09:47→21:24)
[2016-11-30] MEDS: PRENATAL VITAMINS W/ FOLIC ACID TABLET (FP) PO SCH (09:47)
[2016-11-30] MEDS: PANTOPRAZOLE 40 MG TABLET (FP) PO SCH (09:48)
[2016-11-30] MEDS: lamoTRIgine 25 MG TABLET PO SCH ×2 (09:48→21:25)
[2016-11-30] MEDS ORDERED: PT OWN MED DRAWER 7, Y5N ONE (13:12)
[2016-11-30] MEDS: IBUPROFEN 600 MG TABLET (FP) PO PRN (13:13)
[2016-11-30] MEDS: THIAMINE HCL 100 MG TABLET (FP) PO SCH (21:24)
[2016-11-30] MEDS: CYCLOBENZAPRINE HCL 10 MG TABLET (FP) PO PRN (21:26)
[2016-11-30] MEDS: diphenhydrAMINE HCL 50 MG CAPSULE PO PRN (21:27)
[2016-11-30] MEDS: METHYL SALICYLATE/MENTHOL OINT 30 GM TUBE TP PRN (21:28)
[2016-12-01] MEDS: GABAPENTIN 100 MG CAPSULE (FP) PO SCH ×3 (06:38→21:38)
[2016-12-01] MEDS: DOCUSATE SODIUM 100 MG CAPSULE (FP) PO SCH ×2 (10:04→21:38)
[2016-12-01] MEDS: AMOX TR/POT CLAV 875MG/125MG TABLETS (FP) PO SCH ×2 (10:04→21:38)
[2016-12-01] MEDS: lamoTRIgine 25 MG TABLET PO SCH ×2 (10:04→21:38)
[2016-12-01] MEDS: PRENATAL VITAMINS W/ FOLIC ACID TABLET (FP) PO SCH (10:05)
[2016-12-01] MEDS: NAPHAZOLINE/PHENIRAMINE OPHTHALMIC 15 ML BOTTLE OU SCH ×2 (10:05→21:38)
[2016-12-01] MEDS: FERROUS SO4 325 MG TABLET (FP) PO SCH (10:05)
[2016-12-01] MEDS: ESCITALOPRAM OXALATE 20 MG TABLET (FP) PO SCH (10:05)
[2016-12-01] MEDS: PANTOPRAZOLE 40 MG TABLET (FP) PO SCH (10:05)
[2016-12-01] MEDS: IBUPROFEN 600 MG TABLET (FP) PO PRN (10:08)
[2016-12-01] MEDS: CYANOCOBALAMIN (VITAMIN B-12) 100 MCG TABLET PO SCH (15:21)
[2016-12-01] MEDS: THIAMINE HCL 100 MG TABLET (FP) PO SCH (21:38)
[2016-12-01] MEDS: CYCLOBENZAPRINE HCL 10 MG TABLET (FP) PO PRN (21:39)
[2016-12-01] MEDS: diphenhydrAMINE HCL 50 MG CAPSULE PO PRN (21:39)
[2016-12-01] MEDS: METHYL SALICYLATE/MENTHOL OINT 30 GM TUBE TP PRN (22:52)
[2016-12-02] MEDS: GABAPENTIN 100 MG CAPSULE (FP) PO SCH ×3 (06:36→21:54)
[2016-12-02] MEDS: AMOX TR/POT CLAV 875MG/125MG TABLETS (FP) PO SCH ×2 (10:39→21:54)
[2016-12-02] MEDS: CYANOCOBALAMIN (VITAMIN B-12) 100 MCG TABLET PO SCH (10:39)
[2016-12-02] MEDS: PRENATAL VITAMINS W/ FOLIC ACID TABLET (FP) PO SCH (10:39)
[2016-12-02] MEDS: ESCITALOPRAM OXALATE 20 MG TABLET (FP) PO SCH (10:39)
[2016-12-02] MEDS: FERROUS SO4 325 MG TABLET (FP) PO SCH (10:39)
[2016-12-02] MEDS: PANTOPRAZOLE 40 MG TABLET (FP) PO SCH (10:39)
[2016-12-02] MEDS: DOCUSATE SODIUM 100 MG CAPSULE (FP) PO SCH ×2 (10:40→21:54)
[2016-12-02] MEDS: NAPHAZOLINE/PHENIRAMINE OPHTHALMIC 15 ML BOTTLE OU SCH ×2 (10:40→21:55)
[2016-12-02] MEDS: lamoTRIgine 25 MG TABLET PO SCH ×2 (10:40→21:54)
[2016-12-02] MEDS: IBUPROFEN 600 MG TABLET (FP) PO PRN (17:06)
[2016-12-02] MEDS: diphenhydrAMINE HCL 50 MG CAPSULE PO PRN ×2 (21:54→23:01)
[2016-12-02] MEDS: THIAMINE HCL 100 MG TABLET (FP) PO SCH (21:54)
[2016-12-02] MEDS: CYCLOBENZAPRINE HCL 10 MG TABLET (FP) PO PRN (21:56)
[2016-12-03] MEDS: GABAPENTIN 100 MG CAPSULE (FP) PO SCH ×3 (06:33→21:46)
[2016-12-03] MEDS: PANTOPRAZOLE 40 MG TABLET (FP) PO SCH (10:28)
[2016-12-03] MEDS: FERROUS SO4 325 MG TABLET (FP) PO SCH (10:29)
[2016-12-03] MEDS: lamoTRIgine 25 MG TABLET PO SCH ×2 (10:29→21:46)
[2016-12-03] MEDS: ESCITALOPRAM OXALATE 20 MG TABLET (FP) PO SCH (10:29)
[2016-12-03] MEDS: PRENATAL VITAMINS W/ FOLIC ACID TABLET (FP) PO SCH (10:29)
[2016-12-03] MEDS: DOCUSATE SODIUM 100 MG CAPSULE (FP) PO SCH ×2 (10:29→21:46)
[2016-12-03] MEDS: CYANOCOBALAMIN (VITAMIN B-12) 100 MCG TABLET PO SCH (10:29)
[2016-12-03] MEDS: NAPHAZOLINE/PHENIRAMINE OPHTHALMIC 15 ML BOTTLE OU SCH ×2 (10:30→21:48)
[2016-12-03] MEDS ORDERED: NICOTINE POLACRILEX 2 MG GUM BUC PRN (12:05)
[2016-12-03] MEDS: NICOTINE 14 MG/24 HOURS TOPICAL PATCH TD SCH (13:00)
[2016-12-03] MEDS: IBUPROFEN 600 MG TABLET (FP) PO PRN (13:02)
[2016-12-03] MEDS: THIAMINE HCL 100 MG TABLET (FP) PO SCH (21:46)
[2016-12-03] MEDS: diphenhydrAMINE HCL 50 MG CAPSULE PO SCH (21:46)
[2016-12-03] MEDS: CYCLOBENZAPRINE HCL 10 MG TABLET (FP) PO PRN (21:47)
[2016-12-03] MEDS ORDERED: PT OWN MED DRAWER 7, Y5N ONE (23:21)
[2016-12-04] MEDS: GABAPENTIN 100 MG CAPSULE (FP) PO SCH ×3 (06:14→21:38)
[2016-12-04] MEDS: CYANOCOBALAMIN (VITAMIN B-12) 100 MCG TABLET PO SCH (10:03)
[2016-12-04] MEDS: DOCUSATE SODIUM 100 MG CAPSULE (FP) PO SCH ×2 (10:03→21:38)
[2016-12-04] MEDS: FERROUS SO4 325 MG TABLET (FP) PO SCH (10:03)
[2016-12-04] MEDS: PRENATAL VITAMINS W/ FOLIC ACID TABLET (FP) PO SCH (10:04)
[2016-12-04] MEDS: ESCITALOPRAM OXALATE 20 MG TABLET (FP) PO SCH (10:04)
[2016-12-04] MEDS: lamoTRIgine 25 MG TABLET PO SCH ×2 (10:04→21:38)
[2016-12-04] MEDS: PANTOPRAZOLE 40 MG TABLET (FP) PO SCH (10:04)
[2016-12-04] MEDS: METHYL SALICYLATE/MENTHOL OINT 30 GM TUBE TP PRN (10:05)
[2016-12-04] MEDS: NAPHAZOLINE/PHENIRAMINE OPHTHALMIC 15 ML BOTTLE OU SCH ×2 (10:05→21:40)
[2016-12-04] MEDS: NICOTINE 14 MG/24 HOURS TOPICAL PATCH TD SCH (10:06)
--- NOTE | 2016-12-04 18:37 | PN ---
[facility] Progress Note Note: received nurse reports that the patient fell in the dinning room, the floor was wet. observed patient ambulate with cane at right hand, reports mild pain from right inner upper arm from fall, the right upper inner arm hit a chair skin intact, mild tender and redness, shoulders and elbows full range of motion , + pulses patient reports that her left hand hit the ground when fall, left dorsal of hand mild swell, skin intact, wrist and fingers full range of motion, + pulses, kirsten bandage elevation, continue rehab and monitoring left hand and right upper arm
[2016-12-04] MEDS: IBUPROFEN 600 MG TABLET (FP) PO PRN (18:38)
[2016-12-04] MEDS: diphenhydrAMINE HCL 50 MG CAPSULE PO SCH (21:38)
[2016-12-04] MEDS: CYCLOBENZAPRINE HCL 10 MG TABLET (FP) PO PRN (21:39)
[2016-12-04] MEDS: THIAMINE HCL 100 MG TABLET (FP) PO SCH (21:40)
[2016-12-05] MEDS: GABAPENTIN 100 MG CAPSULE (FP) PO SCH ×3 (06:34→21:53)
[2016-12-05] MEDS: IBUPROFEN 600 MG TABLET (FP) PO PRN ×2 (06:36→13:07)
[2016-12-05] MEDS: PANTOPRAZOLE 40 MG TABLET (FP) PO SCH (10:43)
[2016-12-05] MEDS: CYANOCOBALAMIN (VITAMIN B-12) 100 MCG TABLET PO SCH (10:43)
[2016-12-05] MEDS: lamoTRIgine 25 MG TABLET PO SCH ×2 (10:43→21:53)
[2016-12-05] MEDS: ESCITALOPRAM OXALATE 20 MG TABLET (FP) PO SCH (10:43)
[2016-12-05] MEDS: FERROUS SO4 325 MG TABLET (FP) PO SCH (10:43)
[2016-12-05] MEDS: NICOTINE 14 MG/24 HOURS TOPICAL PATCH TD SCH (10:43)
[2016-12-05] MEDS: PRENATAL VITAMINS W/ FOLIC ACID TABLET (FP) PO SCH (10:43)
[2016-12-05] MEDS: DOCUSATE SODIUM 100 MG CAPSULE (FP) PO SCH ×2 (10:43→21:53)
[2016-12-05] MEDS: NAPHAZOLINE/PHENIRAMINE OPHTHALMIC 15 ML BOTTLE OU SCH ×2 (10:44→21:53)
[2016-12-05] MEDS ORDERED: PT OWN MED DRAWER 7, Y5N ONE (19:52)
[2016-12-05] MEDS: THIAMINE HCL 100 MG TABLET (FP) PO SCH (21:53)
[2016-12-05] MEDS: diphenhydrAMINE HCL 50 MG CAPSULE PO SCH (21:53)
[2016-12-05] MEDS: CYCLOBENZAPRINE HCL 10 MG TABLET (FP) PO PRN (21:54)
[2016-12-06] MEDS: GABAPENTIN 100 MG CAPSULE (FP) PO SCH ×3 (07:04→21:35)
[2016-12-06] MEDS: NICOTINE 14 MG/24 HOURS TOPICAL PATCH TD SCH (10:07)
[2016-12-06] MEDS: PANTOPRAZOLE 40 MG TABLET (FP) PO SCH (10:07)
[2016-12-06] MEDS: FERROUS SO4 325 MG TABLET (FP) PO SCH (10:07)
[2016-12-06] MEDS: lamoTRIgine 25 MG TABLET PO SCH ×2 (10:07→21:35)
[2016-12-06] MEDS: DOCUSATE SODIUM 100 MG CAPSULE (FP) PO SCH ×2 (10:07→21:35)
[2016-12-06] MEDS: PRENATAL VITAMINS W/ FOLIC ACID TABLET (FP) PO SCH (10:07)
[2016-12-06] MEDS: ESCITALOPRAM OXALATE 20 MG TABLET (FP) PO SCH (10:07)
[2016-12-06] MEDS: NAPHAZOLINE/PHENIRAMINE OPHTHALMIC 15 ML BOTTLE OU SCH ×2 (10:07→21:35)
[2016-12-06] MEDS: CYANOCOBALAMIN (VITAMIN B-12) 100 MCG TABLET PO SCH (10:07)
[2016-12-06] MEDS ORDERED: PT OWN MED DRAWER 7, Y5N ONE (14:05)
[2016-12-06] MEDS: diphenhydrAMINE HCL 50 MG CAPSULE PO SCH (21:35)
[2016-12-06] MEDS: THIAMINE HCL 100 MG TABLET (FP) PO SCH (21:35)
[2016-12-06] MEDS: CYCLOBENZAPRINE HCL 10 MG TABLET (FP) PO PRN (21:37)
[2016-12-06] MEDS: METHYL SALICYLATE/MENTHOL OINT 30 GM TUBE TP PRN (21:39)
[2016-12-07] MEDS: GABAPENTIN 100 MG CAPSULE (FP) PO SCH ×3 (06:28→21:25)
[2016-12-07] MEDS: DOCUSATE SODIUM 100 MG CAPSULE (FP) PO SCH ×2 (10:02→21:25)
[2016-12-07] MEDS: NICOTINE 14 MG/24 HOURS TOPICAL PATCH TD SCH (10:02)
[2016-12-07] MEDS: lamoTRIgine 25 MG TABLET PO SCH ×2 (10:02→21:25)
[2016-12-07] MEDS: CYANOCOBALAMIN (VITAMIN B-12) 100 MCG TABLET PO SCH (10:02)
[2016-12-07] MEDS: PRENATAL VITAMINS W/ FOLIC ACID TABLET (FP) PO SCH (10:02)
[2016-12-07] MEDS: ESCITALOPRAM OXALATE 20 MG TABLET (FP) PO SCH (10:02)
[2016-12-07] MEDS: PANTOPRAZOLE 40 MG TABLET (FP) PO SCH (10:02)
[2016-12-07] MEDS: FERROUS SO4 325 MG TABLET (FP) PO SCH (10:02)
[2016-12-07] MEDS: NAPHAZOLINE/PHENIRAMINE OPHTHALMIC 15 ML BOTTLE OU SCH ×2 (10:03→21:26)
[2016-12-07] MEDS: diphenhydrAMINE HCL 50 MG CAPSULE PO SCH (21:25)
[2016-12-07] MEDS: THIAMINE HCL 100 MG TABLET (FP) PO SCH (21:25)
[2016-12-07] MEDS: CYCLOBENZAPRINE HCL 10 MG TABLET (FP) PO PRN (22:07)
[2016-12-08] MEDS: GABAPENTIN 100 MG CAPSULE (FP) PO SCH ×3 (06:16→21:27)
[2016-12-08] MEDS: DOCUSATE SODIUM 100 MG CAPSULE (FP) PO SCH ×2 (09:56→21:28)
[2016-12-08] MEDS: FERROUS SO4 325 MG TABLET (FP) PO SCH (09:57)
[2016-12-08] MEDS: ESCITALOPRAM OXALATE 20 MG TABLET (FP) PO SCH (09:57)
[2016-12-08] MEDS: lamoTRIgine 25 MG TABLET PO SCH ×2 (09:57→21:28)
[2016-12-08] MEDS: PANTOPRAZOLE 40 MG TABLET (FP) PO SCH (09:58)
[2016-12-08] MEDS: PRENATAL VITAMINS W/ FOLIC ACID TABLET (FP) PO SCH (09:58)
[2016-12-08] MEDS: NICOTINE 14 MG/24 HOURS TOPICAL PATCH TD SCH (09:58)
[2016-12-08] MEDS: CYANOCOBALAMIN (VITAMIN B-12) 100 MCG TABLET PO SCH (09:58)
[2016-12-08] MEDS: NAPHAZOLINE/PHENIRAMINE OPHTHALMIC 15 ML BOTTLE OU SCH ×2 (09:59→21:28)
--- NOTE | 2016-12-08 13:45 | PN ---
Psychiatric Progress Note Vital Signs: Vital Signs Period Temp Pulse Resp BP Sys/Suarez Pulse Ox Last 24 Hr 97.6 F 79 18-18 112/73 Date of Session: 12/08/16 Chief Complaint:: Discharge visit HPI: patient addressed Cannabis dependence comorbid with Substance induced mood dsiorder. ROS: Significant for GERD,Low back pain. Current Medications: Active Medications Generic Name Dose Route Start Last Admin Trade Name Freq PRN Reason Stop Dose Admin Acetaminophen 650 mg 11/25/16 17:36 Tylenol - PO Q4H PRN PAIN Acetaminophen 500 mg 11/25/16 18:43 Tylenol - PO DAILY PRN PAIN Al Hydroxide/Mg Hydroxide 30 ml 11/25/16 17:36 12/01/16 21:41 Mylanta Oral Suspension - PO 30 ml Q6H PRN Administration DYSPEPSIA Cyanocobalamin 100 mcg 12/01/16 13:00 12/08/16 09:58 Vitamin B12 - PO 100 mcg DAILY LUIS ALBERTO Administration Cyclobenzaprine HCl 10 mg 11/25/16 18:43 12/07/16 22:07 Flexeril - PO 10 mg DAILY PRN Administration Diphenhydramine HCl 100 mg 12/03/16 22:00 12/07/16 21:25 Benadryl - PO 100 mg HS LUIS ALBERTO Administration Docusate Sodium 100 mg 11/26/16 22:00 12/08/16 09:56 Colace - PO 100 mg BID LUIS ALBERTO Administration Escitalopram Oxalate 20 mg 11/26/16 11:30 12/08/16 09:57 Lexapro - PO 20 mg DAILY LUIS ALBERTO Administration Eucalyptus/Menthol/Phenol/Sorbitol 1 each 11/25/16 17:36 Cepastat Lozenge - MM Q4H PRN SORE THROAT Ferrous Sulfate 325 mg 11/26/16 10:00 12/08/16 09:57 Feosol - PO 325 mg DAILY LUIS ALBERTO Administration Gabapentin 100 mg 11/26/16 14:00 12/08/16 13:04 Neurontin - PO 100 mg TID LUIS ALBERTO Administration Guaifenesin 10 ml 11/25/16 17:36 Robitussin Dm - PO Q6H PRN COUGH Hydroxyzine Pamoate 50 mg 11/25/16 17:36 Vistaril - PO Q4H PRN AGITATION Ibuprofen 600 mg 11/25/16 18:44 12/05/16 13:07 Motrin - PO 600 mg Q8H PRN Administration PAIN Lamotrigine 25 mg 11/26/16 11:30 12/08/16 09:57 Lamictal - PO 25 mg BID LUIS ALBERTO Administration Loperamide HCl 4 mg 11/25/16 17:36 Imodium - PO Q6H PRN DIARRHEA Magnesium Citrate 300 ml 11/25/16 17:36 Citroma - PO Q48H PRN CONSTIPATION Magnesium Hydroxide 30 ml 11/25/16 17:36 Milk Of Magnesia - PO DAILY PRN CONSTIPATION Methyl Salicylate 1 applic 11/28/16 18:50 12/06/16 21:39 Jorge-Kendall - TP 1 applic BID PRN Administration BACK PAIN Naphazoline HCl/Pheniramine Maleate 1 drop 11/27/16 22:00 12/08/16 09:59 Visine-A - OU 1 drop BID LUIS ALBERTO Administration Nicotine 14 mg 12/03/16 12:45 12/08/16 09:58 Nicoderm Patch - TD 14 mg DAILY LUIS ALBERTO Administration Nicotine Polacrilex 2 mg 11/25/16 17:36 11/28/16 06:47 Nicorette Gum - BC 2 mg Q2H PRN Administration NICOTINE REPLACEMENT RX Nicotine Polacrilex 2 mg 12/03/16 12:05 Nicorette Gum - BUC Q2H PRN NICOTINE REPLACEMENT RX Pantoprazole Sodium 40 mg 11/26/16 10:00 12/08/16 09:58 Protonix - PO 40 mg DAILY LUIS ALBERTO Administration Multivit/Folic Acid/Iron 1 tab 11/26/16 10:00 12/08/16 09:58 Vitamins (Sjr) - PO 1 tab DAILY LUIS ALBERTO Administration Pseudoephedrine/Triprolidine 1 combo 11/25/16 17:36 Actifed - PO TID PRN NASAL CONGESTION Thiamine HCl 100 mg 11/25/16 22:00 12/07/16 21:25 Vitamin B1 - PO 100 mg HS LUIS ALBERTO Administration Current Side Effect: No Lab tests ordered: No Lab tests reviewed: Yes Provider note:: patient will complete this program tomorrow 12/09/16.She has met her treatment goals and will continue to address her issues on outpatient basis at [facility].Patient reports finding that current medications.Lamictal 25 mg po bid,Lexapro 20 mg po daily and Neurontin 100 mg po tid help to cope with anxiety,mood instability,depression.scripts for 30 days supply of the above medications provided. Patient identifies areas of difficulties and ways,supports,coping skills she can utilize to maintain recovery.Supportive therapy ,psychoeducations has been proiivided as well. Patient is stable for discharge tomorrow 12/09/16. Total face to face time:: 30 Mental Status Exam - Mental Status Exam Alert and Oriented to: Time, Place, Person Cognitive Function: Grossly Intact Patient Appearance: Well Groomed Affect: Mood Congruent Patient Behavior: Cooperative Speech Pattern: Clear Voice Loudness: Normal Thought Process: Goal Oriented Thought Disorder: Not Present Hallucinations: Denies Suicidal Ideation: Denies Homicidal Ideation: Denies Insight/Judgement: Fair Sleep: Fair Appetite: Fair Muscle strength/Tone: Normal Gait/Station: Normal Psychiatric Treatment Plan - Problem List (1) Cannabis dependence Current Visit: Yes (2) GERD (gastroesophageal reflux disease) Current Visit: Yes (3) History of fracture of right ankle Current Visit: Yes (4) Lactose intolerance Current Visit: Yes (5) Low back pain Current Visit: Yes (6) Bipolar II disorder Current Visit: Yes (7) Perirectal abscess Current Visit: Yes
[2016-12-08] MEDS ORDERED: PT OWN MED DRAWER 7, Y5N ONE (20:12)
[2016-12-08] MEDS: THIAMINE HCL 100 MG TABLET (FP) PO SCH (21:28)
[2016-12-08] MEDS: diphenhydrAMINE HCL 50 MG CAPSULE PO SCH (21:28)
[2016-12-08] MEDS: CYCLOBENZAPRINE HCL 10 MG TABLET (FP) PO PRN (21:29)
[2016-12-09] MEDS: GABAPENTIN 100 MG CAPSULE (FP) PO SCH (06:24)
[2016-12-09 06:49] VITALS: BP 117/76; PULSE 71; TEMP 98
[2016-12-09] MEDS: CYANOCOBALAMIN (VITAMIN B-12) 100 MCG TABLET PO SCH (09:01)
[2016-12-09] MEDS: ESCITALOPRAM OXALATE 20 MG TABLET (FP) PO SCH (09:01)
[2016-12-09] MEDS: PRENATAL VITAMINS W/ FOLIC ACID TABLET (FP) PO SCH (09:01)
[2016-12-09] MEDS: PANTOPRAZOLE 40 MG TABLET (FP) PO SCH (09:01)
[2016-12-09] MEDS: FERROUS SO4 325 MG TABLET (FP) PO SCH (09:01)
[2016-12-09] MEDS: DOCUSATE SODIUM 100 MG CAPSULE (FP) PO SCH (09:01)
[2016-12-09] MEDS: NAPHAZOLINE/PHENIRAMINE OPHTHALMIC 15 ML BOTTLE OU SCH (09:02)
[2016-12-09] MEDS: lamoTRIgine 25 MG TABLET PO SCH (09:02)
[2016-12-09] MEDS: NICOTINE 14 MG/24 HOURS TOPICAL PATCH TD SCH (09:02)
[2016-12-09] MEDS ORDERED: PT OWN MED DRAWER 7, Y5N ONE (09:04)
== END 2016-12-09 09:10 | disposition home or self-care (01) | DRG 772 ==
LOC: YASAS 12:07 → Y3E 18:41
PROVIDERS: ADMIT Psychiatry & Neurology Psychiatry; ATTEND Psychiatry & Neurology Psychiatry
PROC: HZ42ZZZ Group Counseling for Substance Abuse Treatment, Cognitive-Behavioral (ICD-10-PCS; principal; 2016-11-25)
DX: F12.20 Cannabis dependence, uncomplicated (principal); F17.210 Nicotine dependence, cigarettes, uncomplicated; F19.24 Other psychoactive substance dependence with psychoactive substance-induced mood disorder; F31.81 Bipolar II disorder; K21.9 Gastro-esophageal reflux disease without esophagitis; M54.5 Low back pain; Z86.69 Personal history of other diseases of the nervous system and sense organs; E73.9 Lactose intolerance, unspecified; Z91.040 Latex allergy status; Z87.81 Personal history of (healed) traumatic fracture; Z87.19 Personal history of other diseases of the digestive system; M79.621 Pain in right upper arm; W01.190A Fall on same level from slipping, tripping and stumbling with subsequent striking against furniture, initial encounter; Y93.9 Activity, unspecified; Y92.238 Other place in hospital as the place of occurrence of the external cause
CPT/HCPCS: 36415; 73110-TC-LT; 80053; 81003; 81015; 85027; 86593; 87389; 93005; 93010

== ENCOUNTER 2019-05-10 15:23 | Emergency (ER) | payer OTHER ==
--- NOTE | 2019-05-10 15:33 | PDOC ---
Rapid Medical Evaluation Time Seen by Provider: 05/10/19 15:31 Medical Evaluation: Allergies Allergy/AdvReac Type Severity Reaction Status Date / Time latex Allergy Itching Verified 05/10/19 15:31 No Known Drug Allergies Allergy Verified 05/10/19 15:31 lactose AdvReac Severe bloating Verified 05/10/19 15:31 NKDA Allergy Uncoded 05/10/19 15:31 05/10/19 15:31 Pt c/o: cough x 2 weeks, + smoker Pt on brief exam: vss Pt ordered for: chest xray, urine preg pt to proceed to the ED 05/10/19 15:33 Discharge Disposition - Diagnosis Bronchitis - Discharge Dispostion Disposition: HOME Condition at time of disposition: Stable - Prescriptions Prescriptions: Albuterol Sulfate Inhaler - [Ventolin HFA Inhaler -] 1 - 2 inh PO Q4H #1 inhaler Azithromycin [Zithromax 250mg Tablets -] 250 mg PO DAILY #4 tab Benzonatate [Tessalon Pearls -] 100 mg PO TID #21 capsule predniSONE [Deltasone -] 40 mg PO DAILY #8 tablet - Referrals Referrals: Andreea Beckman [Primary Care Provider] - - Patient Instructions Printed Discharge Instructions: DI for Acute Bronchitis Additional Instructions: You have bronchitis. Your chest x-ray was negative for pneumonia. Please use the inhaler every 4 hours for the next week to help with your cough. Take the azithromycin as directed starting tomorrow night. Continue taking the prednisone daily for the next 4 days starting tomorrow. Take the Tessalon Perles as directed. Please follow up with your primary care doctor in 1 week if your symptoms are not improving. Return to the emergency department if you have fevers, chills, worsening cough, chest pain, worsening shortness of breath or if you have any changes in your symptoms. - Post Discharge Activity Work/School Note: Back to Work
[2019-05-10 15:37] VITALS: BP 105/43; PULSE 68; TEMP 98.2; BMI 35.2
[2019-05-10] MEDS ORDERED: AZITHROMYCIN 250 MG TABLET PO ONE (17:29)
[2019-05-10] MEDS ORDERED: DEXAMETHASONE LIQUID 0.5 MG/5 ML PO ONE (17:29)
[2019-05-10] MEDS ORDERED: ALBUTEROL SO4 2.5/IPRATROPIUM 0.5 INH SOL 3 ML VIAL.NEB. NEB ONE ×2 (17:29→17:42)
[2019-05-10] MEDS ORDERED: DEXAMETHASONE SOD PHOSPHATE 10 MG/1 ML VIAL ONE (17:42)
[2019-05-10] MEDS ORDERED: AZITHROMYCIN 250 MG TABLET ONE (17:42)
--- NOTE | 2019-05-10 17:44 | PDOC ---
History of Present Illness - General Chief Complaint: Cold Symptoms Stated Complaint: COUGHING BLOOD Time Seen by Provider: 05/10/19 15:31 History Source: Patient Exam Limitations: No Limitations Past History - Travel Traveled outside of the country in the last 30 days: No Close contact w/someone who was outside of country & ill: No - Past Medical History Allergies/Adverse Reactions: Allergies Allergy/AdvReac Type Severity Reaction Status Date / Time latex Allergy Itching Verified 05/10/19 15:31 No Known Drug Allergies Allergy Verified 05/10/19 15:31 lactose AdvReac Severe bloating Verified 05/10/19 15:31 NKDA Allergy Uncoded 05/10/19 15:31 Home Medications: Ambulatory Orders Cyclobenzaprine HCl [Flexeril -] 10 mg PO DAILY PRN 11/11/16 Meloxicam [Mobic] 10 mg PO DAILY 11/11/16 Ibuprofen [Motrin -] 600 mg PO TID PRN #90 tablet 11/12/16 Acetaminophen [Tylenol .Extra-Strength -] 500 mg PO DAILY PRN 11/25/16 Cyanocobalamin [Vitamin B12 -] 100 mcg PO DAILY #30 tablet MDD 1 12/08/16 Diphenhydramine [Benadryl Capsule -] 100 mg PO HS #60 cap 12/08/16 Pantoprazole Sodium [Protonix -] 40 mg PO DAILY #30 tablet.ec 12/08/16 Albuterol Sulfate Inhaler - [Ventolin HFA Inhaler -] 1 - 2 inh PO Q4H #1 inhaler 05/10/19 Azithromycin [Zithromax 250mg Tablets -] 250 mg PO DAILY #4 tab 05/10/19 Benzonatate [Tessalon Pearls -] 100 mg PO TID #21 capsule 05/10/19 predniSONE [Deltasone -] 40 mg PO DAILY #8 tablet 05/10/19 Anemia: Yes (on iron ) Asthma: No Cancer: No Cardiac Disorders: No CVA: No COPD: No CHF: No Dementia: No Diabetes: No GI Disorders: Yes (gerd) Disorders: No HTN: No Hypercholesterolemia: No Liver Disease: No Psychiatric Problems: Yes (DEPRESSION,ANXIETY) Seizures: Yes (febrile convulsion last age of 4 years) Thyroid Disease: No - Surgical History Orthopedic Surgery: Yes (right ankle 2009) - Psycho Social/Smoking Cessation Hx Smoking History: Current every day smoker Have you smoked in the past 12 months: Yes Number of Cigarettes Smoked Daily: 6 Information on smoking cessation initiated: Yes 'Breaking Loose' booklet given: 11/25/16 Hx Alcohol Use: No Drug/Substance Use Hx: Yes Substance Use Type: Marijuana Hx Substance Use Treatment: Yes (last treatment 2010 [facility]) Review of Systems - Review of Systems Able to Perform ROS?: Yes Comments:: 05/10/19 17:54 CONSTITUTIONAL: Absent: fever, chills, diaphoresis, generalized weakness, malaise, loss of appetite HEENT: Absent: rhinorrhea, nasal congestion, throat pain, throat swelling, difficulty swallowing, mouth swelling, ear pain, eye pain, visual Changes CARDIOVASCULAR: Absent: chest pain, loss of consciousness, palpitations, irregular heart rate, peripheral edema RESPIRATORY: Present: Cough Absent: shortness of breath, dyspnea with exertion, orthopnea, wheezing, stridor, hemoptysis GASTROINTESTINAL: Absent: abdominal pain, abdominal distension, nausea, vomiting, diarrhea, constipation, melena, hematochezia GENITOURINARY: Absent: dysuria, frequency, urgency, hesitancy, hematuria, flank pain, genital pain MUSCULOSKELETAL: Absent: myalgia, arthralgia, joint swelling SKIN: Absent: rash, itching, pallor HEMATOLOGIC/IMMUNOLOGIC: Absent: easy bleeding, easy bruising, lymphadenopathy, frequent infections ENDOCRINE: Absent: unexplained weight gain, unexplained weight loss, heat intolerance, cold intolerance NEUROLOGIC: Absent: headache, focal weakness or paresthesias, dizziness, unsteady gait, seizure, mental status changes, bladder or bowel incontinence PSYCHIATRIC: Absent: anxiety, depression, suicidal or homicidal ideation, hallucinations. Is the patient limited Malian proficient: No *Physical Exam - Vital Signs Last Vital Signs Temp Pulse Resp BP Pulse Ox 98.2 F 68 18 105/43 L 99 05/10/19 15:33 05/10/19 15:33 05/10/19 15:33 05/10/19 15:33 05/10/19 15:33 - Physical Exam 05/10/19 17:54 GENERAL: Well developed, well nourished. Awake and alert. No acute distress. HEENT: Normocephalic, atraumatic. PERRLA, EOMI. No conjunctival pallor. Sclera are non- icteric. Moist mucous membranes. Oropharynx is clear. NECK: Supple. Full ROM. No lymphadenopathy. CARDIOVASCULAR: Regular rate and rhythm. No murmurs, rubs, or gallops. Distal pulses are 2+ and symmetric. PULMONARY: No evidence of respiratory distress. Lungs clear to auscultation bilaterally. No wheezing, rales or rhonchi. SKIN: Warm and dry. Normal capillary refill. No rashes. No jaundice. NEUROLOGICAL: Alert, awake, appropriate. Cranial nerves 2-12 intact. No deficits to light touch and temperature in face, upper extremities and lower extremities. No motor deficits in the in face, upper extremities and lower extremities. Normoreflexic in the upper and lower extremities. Normal speech. Toes are down-going bilaterally. Gait is normal without ataxia. PSYCHIATRIC: Cooperative. Good eye contact. Appropriate mood and affect. ED Treatment Course - ADDITIONAL ORDERS Additional order review: Laboratory Results 05/10/19 16:04 Urine HCG, Qual Negative Medical Decision Making - Medical Decision Making 05/10/19 17:54 Patient is a 43-year-old female past medical history of bronchitis, asthma, presents to the ER for 10 days of cough. She states that at the beginning she had flulike symptoms however she did not have a fever. She states that the aches subsided and the cough continued. She states that the last few days she has been coughing up blood so she came to the ER for evaluation. The patient is an active smoker. A/P: Bronchitis On exam lungs are clear to auscultation bilateral without wheezes rales or rhonchi. However, patient cannot take a deep breath without coughing. Chest x-ray shows no pneumonia. Blood likely a [place] tear. Given length of symptoms, cough and shortness of breath we will treat as an acute bronchitis exacerbation Azithromycin sent to patient's pharmacy as she is an active smoker. Discharge home with primary care follow-up. I discussed the physical exam findings, ancillary test results and final di agnoses with the patient. I answered all of the patient's questions. The patient was satisfied with the care received and felt comfortable with the discharge plan and treatment plan. The Patient agrees to follow up with the primary care physician/specialist within 24-72 hours. Return precautions were given. Discharge - Discharge Information Problems reviewed: Yes Clinical Impression/Diagnosis: Bronchitis Condition: Stable Disposition: HOME - Admission No - Follow up/Referral Referrals: Andreea Beckman [Primary Care Provider] - - Patient Discharge Instructions Patient Printed Discharge Instructions: DI for Acute Bronchitis Additional Instructions: You have bronchitis. Your chest x-ray was negative for pneumonia. Please use the inhaler every 4 hours for the next week to help with your cough. Take the azithromycin as directed starting tomorrow night. Continue taking the prednisone daily for the next 4 days starting tomorrow. Take the Tessalon Perles as directed. Please follow up with your primary care doctor in 1 week if your symptoms are not improving. Return to the emergency department if you have fevers, chills, worsening cough, chest pain, worsening shortness of breath or if you have any changes in your symptoms. - Post Discharge Activity Work/Back to School Note: Back to Work
== END 2019-05-10 18:09 | disposition home or self-care (01) ==
LOC: JERFT 15:23
DX: J20.9 Acute bronchitis, unspecified (principal); D50.8 Other iron deficiency anemias; K21.9 Gastro-esophageal reflux disease without esophagitis; F41.9 Anxiety disorder, unspecified; F32.9 Major depressive disorder, single episode, unspecified; Z86.69 Personal history of other diseases of the nervous system and sense organs; F17.210 Nicotine dependence, cigarettes, uncomplicated
CPT/HCPCS: 71046-TC-FY; 84703; 99281-25